=== PATIENT | female | born 1950 | race African-American/Black ===

== ENCOUNTER 2017-07-07 07:26 | Day surgery (SDC) | payer MEDICARE, OTHER ==
--- NOTE | 2017-07-06 13:47 | HISTORY AND PHYSICAL E ---
History and Physical NAME: SACHIN SERNA : 1950 AGE: 67Y ADMITTED: 07/07/2017 ROOM: REFERRING PHYSICIAN: Dr. Cullen. CHIEF COMPLAINT: Colon screening. HISTORY OF PRESENT ILLNESS: Patient was seen in 2010. Colon 2000. She did have a sessile villous lesion, most likely adenoma; this was 2010. Again, she did have a villous lesion, extended from 20-40 cm, involving the sigmoid and descending colon. The lesion histology was negative for adenoma. The patient has benign polyps. At this time, patient for colon screening. The patient has a history of benign polyp in her sigmoid colon. Multiple polyps, benign. PAST SURGICAL HISTORY: Total hysterectomy. MEDICATIONS: 1. Zocor. 2. Fish oil. FAMILY HISTORY: Father passed and her father had emphysema, her mom has breast cancer. REVIEW OF SYSTEMS: CARDIAC: High cholesterol. GASTROINTESTINAL: Colon screening. PHYSICAL EXAMINATION: VITAL SIGNS: The patient's blood pressure is 130/80, pulse 80, respirations 20, temp is 98. HEAD, EYES, EARS, NOSE, THROAT: Normal. ABDOMEN: Soft. NEUROLOGIC: Exam negative. CONCLUSION: 1. Colon screening. 2. The patient does have history of benign polyps. PLAN: Colonoscopy. Admit 07/07/2017. DICTATING PHYSICIAN: SONIYA HERNANDEZ M.D. [id number] PHY#: [id number] ID: [id number] JOB#: [id number] ACCT: [id number] cc:SONIYA HERNANDEZ M.D. >
[~2017-07-07 07:26] MED LIST: EPINEPHRINE INJ 1 MG/10 ML DISP.SYRIN ONE; FENTANYL CITRATE INJ/PF 100 MCG/2 ML AMPUL ONE; FLUMAZENIL INJ 0.5 MG/5 ML VIAL IV ONE; GLUCAGON,HUMAN RECOMB 1 MG INJ ONE; GLYCOPYRROLATE INJ 0.4 MG/2 ML VIAL ONE; LIDOCAINE 2% JELLY 30 ML TUBE ONE; NALOXONE HCL INJ/PF 0.4 MG/1 ML SDV ONE; ONDANSETRON HCL INJ/PF 4 MG/2 ML SDV ONE
[2017-07-07] MEDS: MIDAZOLAM 2 MG/2 ML INJ ONE ×2 (08:08→08:13)
[2017-07-07 09:24] VITALS: BP 111/89
[2017-07-07 09:28] LABS: ABSOLUTE EOSINOPHILS # (AUTO) 0.1 10^3/uL (0.0-0.6); ABSOLUTE LYMPHOCYTES (AUTO) 1.6 10^3/uL (0.5-4.7); ABSOLUTE MONOCYTES (AUTO) 0.5 10^3/uL (0.1-1.4); ABSOLUTE NEUT (AUTO) 3.4 10^3/uL (1.7-8.2); BASOPHILS % (AUTO) 0.5 % (0-2); EOSINOPHILS % (AUTO) 2.5 % (0-6); HEMATOCRIT 38.4 % (36.0-47.0); HEMOGLOBIN 12.8 g/dL (12.0-15.5); LYMPHOCYTES % (AUTO) 28.2 % (13-45); MEAN CORPUSCULAR HEMOGLOBIN 29.2 pg (27.0-33.4); MEAN CORPUSCULAR HGB CONC 33.3 g/dL (32.0-36.0); MEAN CORPUSCULAR VOLUME 88 fl (80-97); MONOCYTES % (AUTO) 8.5 % (3-13); RED BLOOD COUNT 4.38 10^6/uL (3.72-5.28); RED CELL DISTRIBUTION WIDTH 15.6 % (11.5-14.0); SEGMENTED NEUTROPHILS % (AUTO) 60.3 % (42-78); WHITE BLOOD COUNT 5.6 10^3/uL (4.0-10.5)
--- NOTE | 2017-07-07 11:15 | OPERATIVE REPORT E ---
Operative Report NAME: SACHIN SERNA : 1950 AGE: 67Y DATE OF SURGERY: 07/07/2017 ROOM: PREOPERATIVE DIAGNOSES: 1. Colon screening. 2. History of benign polyps. POSTOPERATIVE DIAGNOSIS: Polyps in sigmoid colon. OPERATION: Colonoscopy. SURGEON: SONIYA HERNANDEZ M.D. ANESTHESIA: Versed 3 and fentanyl 100. TISSUE REMOVED OR ALTERED: Biopsy of sigmoid polyps. PROCEDURE: Rectal exam normal. Diminutive polyp in rectum. Sigmoid polypoid benign looking lesion. Biopsy obtained. Descending colon normal. Transverse colon normal. Ascending colon normal. Cecum: Moderate amount of full liquid stool. Lavage flushing. No gross abnormalities. Inadequate prep in the cecum. Scope withdrawn cecum, ascending, transverse, descending, sigmoid, all the way to the rectum. CONCLUSION: Benign looking polypoid lesion in the sigmoid colon. PLAN: Awaiting biopsy. Baseline CEA and CBC. Followup colonoscopy in 2 years. DICTATING PHYSICIAN: SONIYA HERNANDEZ M.D. [id number] Y#: [id number] ID: [id number] JOB#: [id number] ACCT: [id number] cc:[facility] SONIYA HERNANDEZ M.D. >
--- NOTE | 2017-07-07 11:16 | DISCHARGE SUMMARY E ---
Discharge Summary NAME: SACHIN SERNA : 1950 AGE: 67Y ADMITTED: 07/07/2017 DISCHARGED: 07/07/2017 PROCEDURE: Colonoscopy, biopsy. FINAL DIAGNOSIS: Sigmoid polyps extended from 20 to 30 sigmoid colon benign-looking polypoid lesion, villous-type looking, benign on biopsy 2 years ago. Today's' colonoscopy continued to show the area between 20-30 polypoid villous lesion. Biopsy obtained. DISCHARGE PLAN: Soft diet. Baseline CBC, CEA. Consider followup colonoscopy 2 years. DICTATING PHYSICIAN: SONIYA HERNANDEZ M.D. [id number] [id number] PHY#: [id number] ID: [id number] JOB#: [id number] ACCT: [id number] cc:[facility] SONIYA HART M.D. >
== END 2017-07-07 09:40 | disposition home or self-care (01) ==
LOC: END 07:26
PROVIDERS: ATTEND Specialist
PROC: 0DBN8ZX Excision of Sigmoid Colon, Via Natural or Artificial Opening Endoscopic, Diagnostic (ICD-10-PCS; principal; 2017-07-07 08:00)
DX: Z12.11 Encounter for screening for malignant neoplasm of colon (principal); D12.5 Benign neoplasm of sigmoid colon; R97.0 Elevated carcinoembryonic antigen [CEA]; E78.00 Pure hypercholesterolemia, unspecified; Z79.899 Other long term (current) drug therapy
CPT/HCPCS: 45380; 36415; 82378; 85025; 88305 ×2; J2250; J3010; J1610; J0171; J2310; J2405; J3490

== ENCOUNTER 2019-06-29 10:45 | Day surgery (SDC) | payer MEDICARE, OTHER ==
[~2019-06-29 10:45] MED LIST changes: +CHONDR SU A NA/HYALUR INTRAOC KIT (SURGICARE) ONE; -EPINEPHRINE INJ 1 MG/10 ML DISP.SYRIN ONE; +EPINEPHRINE INJ/PF 1 MG/1 ML AMPULE ONE; -FLUMAZENIL INJ 0.5 MG/5 ML VIAL IV ONE; -GLUCAGON,HUMAN RECOMB 1 MG INJ ONE; -GLYCOPYRROLATE INJ 0.4 MG/2 ML VIAL ONE; +KETOROLAC TROMETHAMINE 0.45% 4 DROP/0.4 ML DROPERETTE OD PRN; +LIDOCAINE 1% INJ-PF (10 MG/ML) 30 ML SDV ONE; -LIDOCAINE 2% JELLY 30 ML TUBE ONE; +MIDAZOLAM 2 MG/2 ML INJ ONE; -NALOXONE HCL INJ/PF 0.4 MG/1 ML SDV ONE; -ONDANSETRON HCL INJ/PF 4 MG/2 ML SDV ONE
[2019-06-29] MEDS: CYCLOPENTOLATE 0.2%/PHENYLEPHRINE 1% OPH SOLN 2 ML OD PRN ×3 (11:14→11:34)
[2019-06-29] MEDS: TROPICAMIDE 1% OPH SOLN 3 ML OD PRN ×3 (11:14→11:34)
[2019-06-29] MEDS: BESIFLOXACIN HCL 0.6% OPH SUSP 5 ML BOTTLE OD PRN ×4 (11:14→12:10)
[2019-06-29] MEDS: TETRACAINE HCL 0.5% OPH SOLN 4 ML OD PRN ×3 (11:15→11:45)
[2019-06-29] MEDS: TOBRAMYCIN SULFATE/DEXAMETH OPH OINTMENT 3.5 GM ONE ×2 (12:10)
[2019-06-29] MEDS: DORZOLAMIDE HCL 2%/TIMOLOL MALEAT 0.5% OPH SOLN 10 ML OD PRN ×2 (12:10)
== END 2019-06-29 12:53 | disposition home or self-care (01) ==
LOC: SC 10:45
PROVIDERS: ATTEND Ophthalmology
DX: H25.11 Age-related nuclear cataract, right eye (principal); Z79.84 Long term (current) use of oral hypoglycemic drugs; Z79.899 Other long term (current) drug therapy; E11.9 Type 2 diabetes mellitus without complications; E78.00 Pure hypercholesterolemia, unspecified
CPT/HCPCS: 66984; 82962; 00142; J2250; J3490 ×4; A9270; J0171; J3010; 142; V2632

== ENCOUNTER 2019-07-13 07:42 | Day surgery (SDC) | payer MEDICARE, OTHER ==
[~2019-07-13 07:42] MED LIST changes: -FENTANYL CITRATE INJ/PF 100 MCG/2 ML AMPUL ONE; -KETOROLAC TROMETHAMINE 0.45% 4 DROP/0.4 ML DROPERETTE OD PRN; +KETOROLAC TROMETHAMINE 0.45% 4 DROP/0.4 ML DROPERETTE OS PRN; -MIDAZOLAM 2 MG/2 ML INJ ONE
[2019-07-13] MEDS: BESIFLOXACIN HCL 0.6% OPH SUSP 5 ML BOTTLE OS PRN ×4 (08:17→09:07)
[2019-07-13] MEDS: CYCLOPENTOLATE 0.2%/PHENYLEPHRINE 1% OPH SOLN 2 ML OS PRN ×3 (08:17→08:37)
[2019-07-13] MEDS: TROPICAMIDE 1% OPH SOLN 3 ML OS PRN ×3 (08:17→08:37)
[2019-07-13] MEDS: TETRACAINE HCL 0.5% OPH SOLN 4 ML OS PRN ×3 (08:18→08:45)
[2019-07-13] MEDS ORDERED: MIDAZOLAM 2 MG/2 ML INJ ONE (08:50)
[2019-07-13] MEDS: DORZOLAMIDE HCL 2%/TIMOLOL MALEAT 0.5% OPH SOLN 10 ML OS PRN ×2 (09:07)
[2019-07-13] MEDS: TOBRAMYCIN SULFATE/DEXAMETH OPH OINTMENT 3.5 GM ONE ×2 (09:07)
== END 2019-07-13 09:40 | disposition home or self-care (01) ==
LOC: SC 07:42
PROVIDERS: ATTEND Ophthalmology
DX: H25.12 Age-related nuclear cataract, left eye (principal); Z98.41 Cataract extraction status, right eye; E11.9 Type 2 diabetes mellitus without complications; E78.00 Pure hypercholesterolemia, unspecified; Z79.84 Long term (current) use of oral hypoglycemic drugs; Z79.899 Other long term (current) drug therapy
CPT/HCPCS: 82962; 00142; 66984; J2250; J3490 ×4; A9270; J0171; 142